=== PATIENT | female | born 1975 | race Caucasian/White ===

== ENCOUNTER 2022-08-08 02:38 | Inpatient (IN) | payer OTHER ==
--- NOTE | 2022-08-08 07:10 | ED ---
Psych HPI - General Chief Complaint: Psychiatric Symptoms Stated Complaint: Mental health Time Seen by Provider: 08/08/22 02:57 Source: family, police, EMS Mode of arrival: EMS - History of Present Illness MD Complaint: suicidal ideation, feels depressed -: days(s) Associated Psychiatric Symptoms: depression Quality: getting worse Worsens With: none Context: significant life stressor Associated Symptoms: denies other symptoms - Related Data Allergies Allergy/AdvReac Type Severity Reaction Status Date / Time Penicillins Allergy Anaphylaxis Verified 08/08/22 02:50 sulfamethoxazole Allergy Anaphylaxis Verified 08/08/22 02:50 [From Bactrim] trimethoprim [From Bactrim] Allergy Anaphylaxis Verified 08/08/22 02:50 Review of Systems ROS Statement: Those systems with pertinent positive or pertinent negative responses have been documented in the HPI. ROS Other: All systems not noted in ROS Statement are negative. Constitutional: Denies: fever, chills Respiratory: Denies: cough, dyspnea Cardiovascular: Denies: chest pain, palpitations Gastrointestinal: Denies: abdominal pain, vomiting, diarrhea Genitourinary: Denies: dysuria, hematuria Musculoskeletal: Denies: back pain Skin: Denies: rash Neurological: Denies: headache, weakness Psychiatric: Reports: anxiety, suicidal thoughts. Denies: auditory hallucinations, visual hallucinations, homicidal thoughts Past Medical History Past Medical History: No Reported History Past Surgical History: No Surgical Hx Reported Past Psychological History: No Psychological Hx Reported Smoking Status: Never smoker Past Alcohol Use History: None Reported Past Drug Use History: Marijuana General Exam General appearance: alert, in no apparent distress Head exam: Present: atraumatic, normocephalic Eye exam: Present: normal appearance. Absent: scleral icterus, conjunctival injection Neck exam: Present: normal inspection Respiratory exam: Present: normal lung sounds bilaterally. Absent: respiratory distress, wheezes, rales, rhonchi, stridor Cardiovascular Exam: Present: regular rate, normal rhythm, normal heart sounds. Absent: systolic murmur, diastolic murmur, rubs, gallop GI/Abdominal exam: Present: soft. Absent: distended, tenderness, guarding, rebound, rigid, mass Extremities exam: Present: normal inspection, normal capillary refill. Absent: joint swelling, calf tenderness Back exam: Present: normal inspection. Absent: CVA tenderness (R), CVA tenderness (L) Neurological exam: Present: alert Psychiatric exam: Present: depressed, anxious. Absent: agitated, flat affect, manic, homicidal ideation Skin exam: Present: warm, dry, intact, normal color. Absent: rash Course Vital Signs 08/08/22 02:39 Temperature 98.4 F Pulse Rate 125 H Respiratory 22 Rate Blood Pressure 119/88 O2 Sat by Pulse 98 Oximetry Disposition Clinical Impression: Mood disorder Disposition: ADMITTED IP TO THIS HOSP Is patient prescribed a controlled substance at d/c from ED?: No Referrals: Lori Pompa MD [Primary Care Provider] - 1-2 days
[2022-08-08] MEDS ORDERED: busPIRone HCl 5 MG TAB PO ONE (10:35)
[2022-08-08] MEDS ORDERED: MAG HYDROX/AL HYDROX/SIMETH 30 ML CUP PO PRN (10:42)
[2022-08-08] MEDS ORDERED: ACETAMINOPHEN TAB 325 MG TAB PO PRN (10:42)
[2022-08-08] MEDS ORDERED: MAGNESIUM HYDROXIDE 2,400 MG/10 ML CUP PO PRN (10:42)
[2022-08-08] MEDS ORDERED: hydrOXYzine pamoate 25 MG CAP PO PRN (10:47)
[2022-08-08] MEDS ORDERED: hydrOXYzine HCL 50 MG/ML 1 ML VIAL IM PRN (10:53)
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
[2022-08-08 19:58] LABS: Appearance,Urine Clear (Clear); Bilirubin,Urine Negative (Negative); Blood,Urine Negative (Negative); Color,Urine Yellow; Glucose,Urine (UA) Negative (Negative); Ketones,Urine 1+ (Negative); Leukocyte Esterase,Urine Negative (Negative); Nitrite,Urine Negative (Negative); PH, Urine 6.5 (5.0-8.0); Protein,Urine Trace (Negative); Specific Gravity,Urine 1.019 (1.001-1.035); Urobilinogen,Urine <2.0 mg/dL (<2.0)
[2022-08-08 20:10] LABS: Amphetamine Screen,Urine Not Detected (NotDetected); Barbiturate Screen,Urine Not Detected (NotDetected); Benzodiazepines Screen,Urine Not Detected (NotDetected); Cocaine Screen,Urine Not Detected (NotDetected); Methadone Screen, Urine Not Detected (NotDetected); Opiate Screen,Urine Not Detected (NotDetected); Oxycodone Screen, Urine Not Detected (NotDetected); Phencyclidine Screen,Urine Not Detected (NotDetected); Tricyclic Antidepressant,Urine Not Detected (NotDetected); Urn Cannabinoid Scrn Detected (NotDetected)
[2022-08-08] MEDS ORDERED: busPIRone HCl 5 MG TAB PO SCH (21:00)
[2022-08-08] MEDS: busPIRone HCl 10 MG TAB PO SCH (22:01)
[2022-08-08] MEDS: MELATONIN 5 MG TABLET PO SCH (22:37)
[2022-08-09 07:02] LABS: ALT 16 U/L (4-34); AST 22 U/L (14-36); African American GFR (CKD) >90 (>60 ml/min/1.73 sqM); Alkaline Phosphatase 53 U/L (38-126); Anion Gap 6 mmol/L; Blood Urea Nitrogen 8 mg/dL (7-17); Calcium 8.9 mg/dL (8.4-10.2); Carbon Dioxide 28 mmol/L (22-30); Chloride 107 mmol/L (98-107); Glucose 95 mg/dL (74-99); Non-African American GFR(CKD) >90 (>60 ml/min/1.73 sqM); Potassium 4.3 mmol/L (3.5-5.1); Sodium 141 mmol/L (137-145); Total Bilirubin 0.9 mg/dL (0.2-1.3); Total Protein 6.8 g/dL (6.3-8.2)
[2022-08-09] MEDS: buPROPion XL 150 MG TAB.ER.24H PO SCH (09:18)
[2022-08-09] MEDS: busPIRone HCl 10 MG TAB PO SCH ×2 (09:18→20:37)
[2022-08-09 10:40] LABS: Chol/HDL Ratio 2.73 Ratio; LDL Cholesterol,Calculated 93.6 mg/dL (0.0-131.0)
--- NOTE | 2022-08-09 11:18 | P.PN ---
Progress Note - Text Progress Note Date: 08/09/22 Interval History: Patient was seen bedside and was directable and agreeable to speak with auto service writer. She states that she is feeling "anxious "because she would like to be discharged soon. She is future oriented and states that she would like to spend time with her terminally ill daughter. She states that she spoke with her family who she believes are not making any changes to help with the level of responsibility she holds at home. When discussing coping skills, patient repeatedly states that she does not have enough time for her self-care at home. She states that she likes to read the Bible and pray as methods of relaxing her mind. She reports doing so while on the unit. She claims to have attended groups but states that she has not found them to be helpful so far. At this time patient denies any suicidal or homicidal ideations, intent or plan. Patient denies any auditory, visual hallucinations and denies any paranoia or delusions. Patient denies any side effects from the medications and has been compliant with meds. Mental Status Exam: General Appearance: Patient appears to be stated age is alert, directable, and attempts to cooperate. Patient appears to have fair hygiene and grooming. Behavior: Patient is seated without any agitated behavior. Slightly restless Speech: Patient's speech is fluent and rapid rate but not pressured Mood/Affect: Patient reports their mood is "anxious", affect is congruent Suicidality/Homicidality: Patient denies having any homicidal ideation intent or plan. Denies any suicidal ideations intent or plan Perceptions: Patient denies any visual hallucinations and denies any auditory hallucinations Though content/process: There is no evidence of any delusional thought content and thought process is linear and goal-directed. Fixated on discharge Memory and concentration: AOX3, grossly intact for the purposes of this session. Can spell "WORLD" backwards Judgment and insight: fair to symptoms but poor to seeking treatment Assessment Major depressive disorder, severe, without psychotic features Adjustment disorder with anxiety and depression Cannabis use disorder, mild Plan: -Patient is admitted under voluntary status to MHU for stabilization of psychiatric symptoms and safety. Patient signed adult voluntary form and medicat ion consent and is placed in patient's chart. -Medications: - Wellbutrin XL 150 mg daily for mood - Buspar to 10 mg BID for anxiety - Vistaril PRN for agitation -Patient was counselled on substance abuse and desired to cut back on use. Motivational interviewing. -Patient was informed of the risks, benefits and side effects of the medication and patient verbally consented to taking the medications. Patient signed med consent form and was placed in chart. -Internal Medicine consult to perform medical evaluation and physical. -SW on board for discharge planning. Encourage patient to participate in groups to work on coping skills. Plan for discharge tomorrow or early next week
--- NOTE | 2022-08-09 12:39 | P.MDCNMH ---
History of Present Illness H&P Date: 08/09/22 History of present illness; patient is a 47-year-old lady with past medical significant for depression who was admitted to inpatient psych after being petitioned by family for expressing suicidal thoughts. Patient has a lot of social stressors going on at home. Patient has 10 children that she shares between her , recently one of her stepdaughter was diagnosed with terminal cancer and that has caused her to be very agitated and anxious. Patient did express that she wanted to end her life but jumping out of the car.She states that she is overwhelmed and would like to be able to spend time with her daughter. However, she admits that she needed space away from the situation. Patient was worked up in the ER, initial lab work showed sodium 141, potassium 4.3, chloride 107, BUN and 8, creatinine 0.66, urine drug screen was negative. Patient was petitioned and was admitted to inpatient psych. REVIEW OF SYSTEMS: CONSTITUTIONAL: No fever, no malaise, no fatigue. HEENT: No recent visual problems or hearing problems. Denied any sore throat. CARDIOVASCULAR: No chest pain, orthopnea, PND, no palpitations, no syncope. PULMONARY: No shortness of breath, no cough, no hemoptysis. GASTROINTESTINAL: No diarrhea, no nausea, no vomiting, no abdominal pain. NEUROLOGICAL: No headaches, no weakness, no numbness. HEMATOLOGICAL: Denies any bleeding or petechiae. GENITOURINARY: Denies any burning micturition, frequency, or urgency. MUSCULOSKELETAL/RHEUMATOLOGICAL: Denies any joint pain, swelling, or any muscle pain. ENDOCRINE: Denies any polyuria or polydipsia. The rest of the 14-point review of systems is negative. PHYSICAL EXAMINATION: GENERAL: The patient is alert and oriented x3, not in any acute distress. Well developed, well nourished. HEENT: Pupils are round and equally reacting to light. EOMI. No scleral icterus. No conjunctival pallor. Normocephalic, atraumatic. No pharyngeal erythema. No thyromegaly. CARDIOVASCULAR: S1 and S2 present. No murmurs, rubs, or gallops. PULMONARY: Chest is clear to auscultation, no wheezing or crackles. ABDOMEN: Soft, nontender, nondistended, normoactive bowel sounds. No palpable organomegaly. MUSCULOSKELETAL: No joint swelling or deformity. EXTREMITIES: No cyanosis, clubbing, or pedal edema. NEUROLOGICAL: Gross neurological examination did not reveal any focal deficits. SKIN: No rashes. Assessment and plan Major depressive disorder, severe, without psychotic features Adjustment disorder Anxiety Cannabis use disorder, mild History of fibromyalgia Plan; Monitor vital signs Suicide precautions Patient is started on Wellbutrin by psychiatry Dose of BuSpar increase to 10 mg twice a day Vistaril when necessary for agitation Continue home meds Past Medical History Past Medical History: No Reported History History of Any Multi-Drug Resistant Organisms: None Reported Past Surgical History: No Surgical Hx Reported Smoking Status: Current every day smoker Medications and Allergies Home Medications Medication Instructions Recorded Confirmed Type No Known Home Medications 08/08/22 08/08/22 History Allergies Allergy/AdvReac Type Severity Reaction Status Date / Time Penicillins Allergy Anaphylaxis Verified 08/08/22 21:42 sulfamethoxazole Allergy Anaphylaxis Verified 08/08/22 21:42 [From Bactrim] trimethoprim [From Bactrim] Allergy Anaphylaxis Verified 08/08/22 21:42 Physical Exam Vitals: Vital Signs Temp Pulse Resp BP 08/09/22 06:20 98.5 F 132 H 18 95/55 08/08/22 12:26 98.2 F 16 113/79 Intake and Output 08/08/22 08/09/22 08/09/22 22:59 06:59 14:59 Other: Weight 52.163 kg 51.3 kg Cranial Nerve Examination - Cranial Nerves Cranial Nerve II- Optic: Intact (Cranial nerve II-12 intact) Cranial Nerve III- Oculomotor: Intact (Cranial nerves 2 to 12 intact) Cranial Nerve IV- Trochlear: Intact Cranial Nerve V- Trigeminal: Intact Cranial Nerve - Abducens: Intact Cranial Nerve VII- Facial: Intact Cranial Nerve VIII- Auditory: Intact Cranial Nerve IX- Glossopharyngeal: Intact Cranial Nerve X- Vagus: Intact Cranial Nerve XI- Accessory: Intact Cranial Nerve XII- Hypoglossal: Intact (Cranial nerve II through XII intact) Results CBC & Chem 7: 08/09/22 06:05 Labs: Abnormal Lab Results - Last 24 Hours (Table) 08/08/22 08/08/22 Range/Units 18:45 19:45 Urine Protein Trace H (Negative) Urine Ketones 1+ H (Negative) U Marijuana (THC) Screen Detected H (NotDetected)
[2022-08-09] MEDS: MELATONIN 5 MG TABLET PO SCH (20:36)
[2022-08-10] MEDS: buPROPion XL 150 MG TAB.ER.24H PO SCH (08:31)
[2022-08-10] MEDS: busPIRone HCl 10 MG TAB PO SCH (08:31)
--- NOTE | 2022-08-10 11:43 | P.PN ---
Progress Note - Text Progress Note Date: 08/10/22 Interval History: Patient was seen in her room this morning and was directable and agreeable to speak with keno writer. She states that she is feeling still a bit "anxious " but does claim that the vistaril and buspar has been helping. she spoke about her stressors at home more in length, statting that her daughter has terminal brain cancer and does not have very long to live. She claims that she "just lost it" however did not make direct suicidal statements. She was fairly focused on discharge today. We spoke about increasing her medication for anxiety which she is okay with. She states that she slept about 5 hours last night and we spoke about increasing her melatonin which she was okay with. States that she is going to some groups however found some of the other patients to be rude to her. She claims to have a improving appetite. At this time patient denies any suicidal or homicidal ideations, intent or plan. Patient denies any auditory, visual hallucinations and denies any paranoia or delusions. Patient denies any side effects from the medications and has been compliant with meds. Mental Status Exam: General Appearance: Patient appears to be stated age is alert, directable, and attempts to cooperate. Patient appears to have fair hygiene and grooming. Behavior: Patient is seated without any agitated behavior. More cooperative today. Speech: Patient's speech is fluent and rapid rate but not pressured Mood/Affect: Patient reports their mood is mildly improving but still "anxious", affect is congruent Suicidality/Homicidality: Patient denies having any homicidal ideation intent or plan. Denies any suicidal ideations intent or plan Perceptions: Patient denies any visual hallucinations and denies any auditory hallucinations Though content/process: There is no evidence of any delusional thought content and thought process is linear and goal-directed. Focused on on discharge Memory and concentration: AOX3, grossly intact for the purposes of this session Judgment and insight: Improving mildly Assessment: Major depressive disorder, severe, without psychotic features anxiety disorder NOS Cannabis use disorder, mild Plan: -Patient is admitted under voluntary status to MHU for stabilization of psychiatric symptoms and safety. Patient signed adult voluntary form and medication consent and is placed in patient's chart. -Medications: Wellbutrin XL 150 mg daily for mood, increase Buspar 15 mg BID for anxiety, Vistaril PRN for agitation. increase melatonin to 10 mg qhs for sleep. -NRT - not needed as patient does not smoke. -SW on board for discharge planning. Encourage patient to participate in groups to work on coping skills. likely discharge tomorrow if patient continues to improve.
[2022-08-10] MEDS: busPIRone HCl 5 MG TAB PO SCH (20:38)
[2022-08-10] MEDS ORDERED: MELATONIN 5 MG TABLET PO SCH (21:00)
[2022-08-11 06:40] VITALS: BP 112/52; PULSE 64; RESP 18; TEMP 98
[2022-08-11] MEDS: buPROPion XL 150 MG TAB.ER.24H PO SCH (08:20)
[2022-08-11] MEDS: busPIRone HCl 5 MG TAB PO SCH (08:20)
--- NOTE | 2022-08-11 10:14 | P.DS ---
Providers Date of admission: 08/08/22 10:40 Expected date of discharge: 08/11/22 Attending physician: Marty Elizabeth MD Consults: 08/08/22 10:42 Consult Physician Routine Consulting Provider: Wan Romero Consult Reason/Comments: medical management Do you want consulting provider notified?: Yes Primary care physician: Lori Pompa - Discharge Diagnosis(es) (1) Major depressive disorder, recurrent severe without psychotic features Current Visit: Yes Status: Acute Priority: High (2) Anxiety disorder Current Visit: Yes Status: Acute Priority: High (3) Cannabis use disorder, mild, abuse Current Visit: Yes Status: Acute Priority: Low Hospital Course: Admission HPI: Admission note was completed by Dr Doss "Patient is a , 47-year-old female who is presenting with suicidal ideation. Patient was petitioned by family due to concerns of expressing suicidal intent. Per petitioned by her son Constantine: "I want to ". "I want to such places without terminally ill daughter. " While in the ED, nursing staff that states that family were not comfortable with patient being sent home due to concern for her safety. Jo Ann states that her and her have 10 children that they share between them with whom they're living. They are also home schooling 4 of those children. She reports that her stepdaughter is terminally ill with brain cancer and that it was in remission until 1.5 months ago at which point they were told that it has returned. For the past 2 months, she states that she has been "agitated" and anxious due to these stressors. Patient was observed to be quite irritable while on the unit, yelling over the phone at family for petitioning her and at the staff. She states that she is overwhelmed and would like to be able to spend time with her daughter. However, she admits that she needed space away from the situation. She explains that she just meant to be able to take places of her daughter so that her daughter would not have to suffer. She initially denies having endorsed suicidal ideation to her family. However, when this provider requested to speak to her spouse, she then endorsed expressing to "jump out of the car" while she was upset. She continues to minimize and deny this statement and says that it was an expression of her frustration and not one she would act on. She states that she did not actually reached for the door or attempt to jump. She says that if she really wanted to attempt suicide, she would have taken penicillin, which is available at her home, for an anaphylactic reaction. Patient reports trouble with staying asleep. She endorses anhedonia and energy issues. She currently denies suicidal ideation, intent, or plan. She endorses having firearms but says that they are locked up by her spouse and that she does not have access to them. She denies homicidal ideation. She denies auditory and visual hallucinations. Patient denies constellation of symptoms consistent with tami. Patient provided verbal consent for this provider to speak with her Xander (Jabari) over the phone. Xander states that the patient made a suicidal statement 4 months ago to "jump out of a window" but has not acted on this. He states that she has expressed passive suicidal ideation some times in the past 2 months and therefore they are uncomfortable with her returning home today until she is calmer and stable." Hospital course: Upon admission to the unit patient was directable and agreeable to commence treatment and signed adult voluntary form. Patient got along well with other patients on the unit and followed unit protocol. Patient was compliant with the medications and denied any side effects throughout hospital course. Patient was started on Wellbutrin XL 150 mg daily for mood, BuSpar 15 mg twice a day for anxiety, Vistaril daily when necessary for anxiety, melatonin 10 mg daily at bedtime for sleep. Patient spoke of her stressors and engaged in therapy both group and individual. Patient was also seen by medical team for history and physical exam. Throughout the course of the hospitalization patient gradually improved with regards to mood, anxiety, sleep and became more future oriented with improved insight and judgment. On the day of discharge patient denied any suicidal or homicidal ideations intent or plan denied any auditory or visual hallucinations. Patient endorsed wanting to live for her daughter and for her family. The patient denied any access to guns or weapons. Patient denied any paranoia and did not endorse any delusions. Patient does have a significant history of substance abuse and was counseled on abstaining from all substances including alcohol and marijuana. Patient was also counseled on the medications and need for regular compliance and was encouraged to follow-up with their outpatient appointment for mental health and also for primary care. Prior to discharge a family meeting will be arranged by social work specialist to answer any questions and ensure safety upon discharge. patient states that the guns in her house are her husbands and are locked away, she does not know the code. Mental status exam: General Appearance: Patient appears to be thin, escobar/black hair, wearing glasses,stated age is alert, pleasant, and cooperative. Patient is in no acute distress and has improved hygiene and grooming Behavior: Patient is calmly seated without any agitated behavior. Speech: Patient's speech is fluent and nonpressured. Mood/Affect: Patient reports their mood is "good", affect is congruent and euthymic. Suicidality/Homicidality: Patient denies having any suicidal or homicidal ideation intent or plan. Perceptions: Patient denies any auditory or visual hallucinations. Though content/process: There is no evidence of any delusional thought content and thought process is linear and goal-directed. more future oriented Memory and concentration: AOX3, grossly intact for the purposes of this session. Can spell "WORLD" backwards correctly. Judgment and insight: improved with guarded prognosis Impression: Major depressive disorder, severe, recurrent without psychotic features Anxiety disorder unspecified Cannabis use disorder mild abuse Plan: -Continue with discharge today as patient has improved and stabilized psychiat rically and is not currently an imminent threat to herself and/or others. Patient will remain at chronically elevated risk for harm to self and/or others due to her impulsivity. -Continue medications: Wellbutrin XL 150 mg daily for mood, BuSpar 15 mg twice a day for anxiety, Vistaril when necessary daily for anxiety, melatonin 10 mg daily at bedtime for sleep. -Patient was counseled on the need for medication compliance and appropriate follow-up at mental health and also primary care for medical issues. Patient verbalized understanding and agreed. -Social work to arrange for and conduct family meeting to ensure safety upon discharge and answer any questions/concerns. Social work also to arrange for patients follow up appointments for psychiatric care along with follow up with primary care provider. -Patient counseled on abstaining from recreational drugs and marijuana and alcohol. Was informed/educated on the adverse effects on their physical and mental health. Patient verbally agreed and understood. -Patient was instructed to return to the hospital or seek immediate medical care if their psychiatric or medical symptoms do worsen or reoccur. Allergies Allergy/AdvReac Type Severity Reaction Status Date / Time Penicillins Allergy Anaphylaxis Verified 08/08/22 21:42 sulfamethoxazole Allergy Anaphylaxis Verified 08/08/22 21:42 [From Bactrim] trimethoprim [From Bactrim] Allergy Anaphylaxis Verified 08/08/22 21:42 Laboratory Results Sodium 141 mmol/L (137-145) 08/09/22 06:05 Potassium 4.3 mmol/L (3.5-5.1) 08/09/22 06:05 Chloride 107 mmol/L (98-107) 08/09/22 06:05 Carbon Dioxide 28 mmol/L (22-30) 08/09/22 06:05 Anion Gap 6 mmol/L 08/09/22 06:05 BUN 8 mg/dL (7-17) 08/09/22 06:05 Creatinine 0.66 mg/dL (0.52-1.04) 08/09/22 06:05 Est GFR (CKD-EPI)AfAm >90 (>60 ml/min/1.73 sqM) 08/09/22 06:05 Est GFR (CKD-EPI)NonAf >90 (>60 ml/min/1.73 sqM) 08/09/22 06:05 Glucose 95 mg/dL (74-99) 08/09/22 06:[address] Glu mg/dL 93 08/09/22 06:05 Hemoglobin A1c 4.9 % (0.0-6.0) 08/09/22 06:05 Calcium 8.9 mg/dL (8.4-10.2) 08/09/22 06:05 Total Bilirubin 0.9 mg/dL (0.2-1.3) 08/09/22 06:05 AST 22 U/L (14-36) 08/09/22 06:05 ALT 16 U/L (4-34) 08/09/22 06:05 Alkaline Phosphatase 53 U/L (38-126) 08/09/22 06:05 Total Protein 6.8 g/dL (6.3-8.2) 08/09/22 06:05 Albumin 4.0 g/dL (3.5-5.0) 08/09/22 06:05 Triglycerides 55.00 mg/dL (0.00-149.00) 08/09/22 06:05 Cholesterol 165.00 mg/dL (0.00-200.00) 08/09/22 06:05 LDL Cholesterol, Calc 93.6 mg/dL (0.0-131.0) 08/09/22 06:05 VLDL Cholesterol, Calc 11.00 mg/dL (5.00-40.00) 08/09/22 06:05 HDL Cholesterol 60.40 mg/dL (40.00-60.00) H 08/09/22 06:05 Cholesterol/HDL Ratio 2.73 Ratio 08/09/22 06:05 TSH 0.980 mIU/L (0.465-4.680) 08/09/22 06:05 Urine Color Yellow 08/08/22 18:45 Urine Appearance Clear (Clear) 08/08/22 18:45 Urine pH 6.5 (5.0-8.0) 08/08/22 18:45 Ur Specific [place] 1.019 (1.001-1.035) 08/08/22 18:45 Urine Protein Trace (Negative) H 08/08/22 18:45 Urine Glucose (UA) Negative (Negative) 08/08/22 18:45 Urine Ketones 1+ (Negative) H 08/08/22 18:45 Urine Blood Negative (Negative) 08/08/22 18:45 Urine Nitrite Negative (Negative) 08/08/22 18:45 Urine Bilirubin Negative (Negative) 08/08/22 18:45 Urine Urobilinogen <2.0 mg/dL (<2.0) 08/08/22 18:45 Ur Leukocyte Esterase Negative (Negative) 08/08/22 18:45 Urine HCG, Qual Not Detected (Not Detectd) 08/08/22 18:45 Urine Opiates Screen Not Detected (NotDetected) 08/08/22 19:45 Ur Oxycodone Screen Not Detected (NotDetected) 08/08/22 19:45 Urine Methadone Screen Not Detected (NotDetected) 08/08/22 19:45 Ur Propoxyphene Screen Not Detected (NotDetected) 08/08/22 19:45 Ur Barbiturates Screen Not Detected (NotDetected) 08/08/22 19:45 U Tricyclic Antidepress Not Detected (NotDetected) 08/08/22 19:45 Ur Phencyclidine Scrn Not Detected (NotDetected) 08/08/22 19:45 Ur Amphetamines Screen Not Detected (NotDetected) 08/08/22 19:45 U Methamphetamines Scrn Not Detected (NotDetected) 08/08/22 19:45 U Benzodiazepines Scrn Not Detected (NotDetected) 08/08/22 19:45 Urine Cocaine Screen Not Detected (NotDetected) 08/08/22 19:45 U Marijuana (THC) Screen Detected (NotDetected) H 08/08/22 19:45 Coronavirus (PCR) Not Detected (Not Detectd) 08/08/22 10:01 Vital Signs Temp 98.0 F 08/11/22 06:00 Pulse 64 08/11/22 06:00 Resp 18 08/11/22 06:00 BP 112/52 08/11/22 06:00 Pulse Ox 98 08/11/22 06:00 FiO2 Patient Condition at Discharge: Stable Plan - Discharge Summary Discharge Rx Participant: No New Discharge Prescriptions: New busPIRone HCL [Buspar] 15 mg PO BID 30 Days #120 tablet Melatonin 10 mg PO HS 30 Days #60 tab buPROPion XL [Wellbutrin XL] 150 mg PO DAILY 30 Days #30 tab Acetaminophen Tab [Tylenol] 650 mg PO Q4HR PRN tab PRN Reason: Mild Pain (Scale 1 To 3) hydrOXYzine pamoate [Vistaril] 50 mg PO DAILY PRN 30 Days #60 cap PRN Reason: Agitation Or Acute Anxiety Discharge Medication List Acetaminophen Tab [Tylenol] 650 mg PO Q4HR PRN tab 08/11/22 [Rx] Melatonin 10 mg PO HS 30 Days #60 tab 08/11/22 [Rx] buPROPion XL [Wellbutrin XL] 150 mg PO DAILY 30 Days #30 tab 08/11/22 [Rx] busPIRone HCL [Buspar] 15 mg PO BID 30 Days #120 tablet 08/11/22 [Rx] hydrOXYzine pamoate [Vistaril] 50 mg PO DAILY PRN 30 Days #60 cap 08/11/22 [Rx] Follow up Appointment(s)/Referral(s): oLri Pompa MD [Primary Care Provider] - 1-2 days Activity/Diet/Wound Care/Special Instructions: Avoid the use of street drugs and alcohol. Take all medications as prescribed. When you are in need of refills on your medications, please contact your medical provider and/or outpatient psychiatrist to have this done. Please go to scheduled outpatient appointments for aftercare treatment. If symptoms return or become worse, call the crisis line at and/or go to the nearest emergency room for evaluation. Discharge Disposition: HOME SELF-CARE
== END 2022-08-11 14:26 | disposition home or self-care (01) | DRG 885 ==
LOC: EC 02:38 → 3MHU 10:40
PROVIDERS: ADMIT Psychiatry & Neurology Psychiatry; ATTEND Psychiatry & Neurology Psychiatry
DX: F33.2 Major depressive disorder, recurrent severe without psychotic features (principal); R45.851 Suicidal ideations; M79.7 Fibromyalgia; F43.23 Adjustment disorder with mixed anxiety and depressed mood; F12.10 Cannabis abuse, uncomplicated; Z79.899 Other long term (current) drug therapy; Z20.822 Contact with and (suspected) exposure to COVID-19; R45.1 Restlessness and agitation; Z88.0 Allergy status to penicillin; Z88.2 Allergy status to sulfonamides
CPT/HCPCS: 80053; 80061; 80306; 81003; 81025; 82075; 83036; 84443; 87635